=== PATIENT | male | born 1985 | race Caucasian/White ===

== ENCOUNTER 2016-07-11 10:24 | Emergency (ER) | payer MEDICAID ==
[~2016-07-11] VITALS: Ht 165.1 cm; Wt 74.8 kg
[2016-07-11 10:39] VITALS: BP 117/77
--- NOTE | 2016-07-11 10:40 | NUR ---
Patient ambulated to bed 07.
--- NOTE | 2016-07-11 10:45 | NUR ---
PATIENT PRESENTS TO ED WITH C/O LEFT SIDED HEADACHE SINCE THIS AM, STATES HE HAD 6 BEERS LAST NIGHT;DENIES N/V/D THIS MORNING, VOMITED LAST NIGHT; SKIN IS PINK/WARM/DRY; AAOX4 WITH EVEN AND STEADY GAIT; LUNGS CLEAR BL; HR EVEN AND REGULAR; PT DENIES ANY FEVER, CP, SOB, OR COUGH AT THIS TIME; PATIENT STATES PAIN OF 8/10 AT THIS TIME; VSS; PATIENT POSITIONED FOR COMFORT; HOB ELEVATED; BEDRAILS UP X2; BED DOWN. ER MD MADE AWARE OF PT STATUS.
--- NOTE | 2016-07-11 10:53 | NUR ---
Dr. He evaluating patient at bedside.
[2016-07-11] MEDS ORDERED: LORazepam 2 MG/ML VIAL IVP ONE (11:15)
[2016-07-11] MEDS ORDERED: LORazepam 1 MG TAB PO ONE (11:20)
[2016-07-11 12:58] VITALS: BP 128/88
--- NOTE | 2016-07-11 12:58 | NUR ---
Patient discharged with v/s stable. Written and verbal after care instructions given and explained. Patient verbalized understanding. Ambulatory with steady gait. All questions addressed prior to discharge. Advised to follow up with PMD.
== END 2016-07-11 12:58 | disposition home or self-care (01) ==
LOC: MED 10:27
DX: F41.9 Anxiety disorder, unspecified (principal)

== ENCOUNTER 2018-01-09 12:04 | Emergency (ER) | payer SELFPAY ==
[~2018-01-09] VITALS: Ht 165.1 cm; Wt 78.0 kg
[2018-01-09 12:10] VITALS: BP 125/73
--- NOTE | 2018-01-09 12:16 | NUR ---
Patient ambulated to bed 12. RN evaluating patient at bedside.
--- NOTE | 2018-01-09 12:27 | NUR ---
PATIENT PRESENTS TO ED WITH LEFT EAR PAIN . PT STATES . DENIES N/V/D; SKIN IS PINK/WARM/DRY; AAOX4 WITH EVEN AND STEADY GAIT; LUNGS CLEAR BL; HR EVEN AND REGULAR; PT DENIES ANY FEVER, CP, SOB, OR COUGH AT THIS TIME; PATIENT STATES PAIN OF 8/10 AT THIS TIME; VSS; PATIENT POSITIONED FOR COMFORT; HOB ELEVATED; BEDRAILS UP X2; BED DOWN. ER MD MADE AWARE OF PT STATUS.
[2018-01-09 13:00] VITALS: BP 125/73
--- NOTE | 2018-01-09 13:01 | NUR ---
Patient discharged with v/s stable. Written and verbal after care instructions given and explained. Patient alert, oriented and verbalized understanding of instructions. Ambulatory with steady gait. All questions addressed prior to discharge. ID band removed. Patient advised to follow up with PMD. Rx of CORTISPORIN OTIC given. Patient educated on indication of medication including possible reaction and side effects. Opportunity to ask questions provided and answered.
== END 2018-01-09 13:00 | disposition home or self-care (01) ==
LOC: MED 12:04
DX: H61.22 Impacted cerumen, left ear (principal); H60.92 Unspecified otitis externa, left ear; I10 Essential (primary) hypertension
CPT/HCPCS: 99282

== ENCOUNTER 2018-11-26 15:00 | Emergency (ER) | payer SELFPAY ==
[~2018-11-26] VITALS: Ht 167.6 cm; Wt 71.2 kg
[2018-11-26 15:06] VITALS: BP 113/87
--- NOTE | 2018-11-26 15:14 | NUR ---
[facility]
--- NOTE | 2018-11-26 15:52 | NUR ---
PT AMBULATED TO ROOM 12
[2018-11-26] MEDS ORDERED: cefTRIAXone 1,000 MG in LIDOCAINE 1% ***ER ONLY *** 2.1 ML IM ONE (16:50)
[2018-11-26] MEDS ORDERED: HYDROcodone/APAP 5/325 MG 1 TAB TAB PO ONE (16:50)
--- NOTE | 2018-11-26 16:55 | NUR ---
BIB SELF. AAO X4 C/O LEFT 2ND DIGIT LACERATION. PER PT, WAS FIXING THE PANEL OF THE CAR AND WAS CUT BY THE METAL. PER PT, THE METAL CUT THROUGH HIS GLOVES. BLEEDING CONTROLLED.
[2018-11-26] MEDS ORDERED: cefTRIAXone 1,000 MG VIAL ONE (17:09)
[2018-11-26] MEDS ORDERED: LIDOCAINE MPF 1% - 5 mL VIAL 5 ML ONE (17:11)
[2018-11-26 17:40] VITALS: BP 125/79
--- NOTE | 2018-11-26 17:53 | NUR ---
NO WOUND DRESSING WAS NEEDED FOR THE FINGER LACERATION. PHYSICIAN KAMILLA KHOURY AND FE STRIPPED THE FINGER.
== END 2018-11-26 17:40 | disposition home or self-care (01) ==
LOC: MED 15:00
DX: S61.211A Laceration without foreign body of left index finger without damage to nail, initial encounter (principal); I10 Essential (primary) hypertension; F41.9 Anxiety disorder, unspecified; W45.8XXA Other foreign body or object entering through skin, initial encounter; Y93.89 Activity, other specified; Y92.89 Other specified places as the place of occurrence of the external cause; Y99.8 Other external cause status
CPT/HCPCS: 12001; 90471; 90715; 96372; 99283; J0696; J2001

== ENCOUNTER 2021-02-09 09:40 | Emergency (ER) | payer SELFPAY ==
[~2021-02-09] VITALS: Ht 167.6 cm; Wt 70.3 kg
[2021-02-09 10:07] VITALS: BP 152/87
--- NOTE | 2021-02-09 10:11 | NUR ---
Patient to wait in tent. HR 91 SpO2 100% Temperature 98.6* (temporal).
--- NOTE | 2021-02-09 10:12 | NUR ---
35 y/o M BIB self from home c/o COVID-19 symptoms: nausea, headache, chills, "wet cough," sore throat +itchiness -SOB. Patient reports waking up at 0600 this morning with symptoms, denies vomiting, chest/ abdominal pain, dysuria, urinary symptoms. Denies medications prior to arrival. Denies sickness at home. Temperature 98.6* temporal. PMH/Sx/Meds: hyperlipidemia (dietary controlled), anxiety NKA
[2021-02-09] MEDS ORDERED: PROM118S5 PO (11:03)
[2021-02-09] MEDS ORDERED: ACET-10509 PO (11:03)
--- NOTE | 2021-02-09 11:27 | NUR ---
COVID Swab collected and sent to lab
[2021-02-09 11:28] VITALS: BP 152/87
--- NOTE | 2021-02-09 11:28 | NUR ---
Patient discharged with v/s stable. Written and verbal after care instructions given and explained. Patient alert, oriented and verbalized understanding of instructions. Ambulatory with steady gait. All questions addressed prior to discharge. ID band removed. Patient advised to follow up with PMD. Rx of Acetaminophen and promethaizne was given. Patient educated on indication of medication including possible reaction and side effects. Opportunity to ask questions provided and answered.
== END 2021-02-09 11:28 | disposition home or self-care (01) ==
LOC: MED 09:40
DX: J06.9 Acute upper respiratory infection, unspecified (principal); Z20.822 Contact with and (suspected) exposure to COVID-19; I10 Essential (primary) hypertension; Z79.899 Other long term (current) drug therapy
CPT/HCPCS: 99283; U0003

== ENCOUNTER 2022-02-19 11:34 | Emergency (ER) | payer SELFPAY ==
[~2022-02-19] VITALS: Ht 162.6 cm; Wt 74.8 kg
[~2022-02-19 11:34] MED LIST: ACET-10509 PO; PROM118S5 PO
[2022-02-19 11:43] VITALS: BP 131/97
--- NOTE | 2022-02-19 11:59 | NUR ---
DR JARA AT BEDSIDE.
--- NOTE | 2022-02-19 12:03 | NUR ---
36 Y/O M BIB SELF C/O ABD AND HEADACHE ON AND OFF FOR 3 WEEKS. PT HAS BEEN TAKING TYLENOL WITH NO RELIEF. NKA OR PMH
[2022-02-19] MEDS ORDERED: KETOROLAC 15 MG/ML VIAL IVP ONE (12:05)
[2022-02-19] MEDS ORDERED: ONDANSETRON 4 MG ODT PO ONE (12:05)
--- NOTE | 2022-02-19 12:20 | NUR ---
LAB AT BEDSIDE.
[2022-02-19 12:44] LABS: BASOPHILS % (AUTO) 1.1 % (0.0-2.0); EOSINOPHILS # (AUTO) 0.1 K/uL (0-0.4); EOSINOPHILS % (AUTO) 1.5 % (0.0-4.0); HEMATOCRIT 49.5 % (36-52); LYMPHOCYTES # (AUTO) 0.9 K/uL (2.0-11.5); LYMPHOCYTES % (AUTO) 18.8 % (20.5-51.1); MEAN CORPUSCULAR HEMOGLOBIN 32 pg (27-31); MEAN CORPUSCULAR HGB CONC 34 g/dL (33-37); MONOCYTES # (AUTO) 0.5 K/uL (0.8-1.0); MONOCYTES % (AUTO) 11.1 % (1.7-9.3); NEUTROPHILS # (AUTO) 3.1 K/uL (1.8-7.7); NEUTROPHILS % (AUTO) 67.5 % (42.2-75.2); PLATELET COUNT (AUTO) 220 K/uL (140-450); RED BLOOD CELL COUNT(AUTO) 5.38 MIL/uL (4.20-6.10); RED CELL DISTRIBUTION WIDTH 12.7 % (11.6-13.7); WHITE BLOOD COUNT (AUTO) 4.5 K/uL (4.8-10.8)
[2022-02-19 13:14] LABS: ALBUMIN 3.7 g/dL (3.4-5.0); ANION GAP 13.3 (8-16); CARBON DIOXIDE 27.6 mmol/L (21-32); CREATININE 0.8 mg/dL (0.6-1.3); POTASSIUM 3.9 mmol/L (3.5-5.1); TOTAL BILIRUBIN 0.7 mg/dL (0.0-1.0)
--- NOTE | 2022-02-19 13:38 | NUR ---
Patient taken for CT scan via wheelchair
--- NOTE | 2022-02-19 13:59 | NUR ---
PT BACK FROM CT SCAN.
[2022-02-19] MEDS ORDERED: BEN10 PO (14:47)
[2022-02-19 14:55] VITALS: BP 124/80
--- NOTE | 2022-02-19 14:56 | NUR ---
Patient discharged with v/s stable. Written and verbal after care instructions given and explained. Patient alert, oriented and verbalized understanding of instructions. Ambulatory with steady gait. All questions addressed prior to discharge. ID band removed. Patient advised to follow up with PMD. Rx of DICLOMINE HYDROCHLORIDE given. Opportunity to ask questions provided and answered.
--- NOTE | 2022-02-19 15:00 | NUR ---
Chart checked and completed. The patient's care was reviewed and supervised by Malina Mancia RN.
== END 2022-02-19 14:56 | disposition home or self-care (01) ==
LOC: MED 11:34
DX: R10.31 Right lower quadrant pain (principal); I10 Essential (primary) hypertension; Z79.899 Other long term (current) drug therapy
CPT/HCPCS: 36415; 74177; 80053; 81002; 83690; 85025; 96372; 99285; J1885; Q0162; Q9967

== ENCOUNTER 2022-08-09 13:58 | Emergency (ER) | payer SELFPAY ==
[~2022-08-09] VITALS: Ht 167.6 cm; Wt 77.1 kg
[~2022-08-09 13:58] MED LIST changes: +BEN10 PO
[2022-08-09 14:11] VITALS: BP 130/96
[2022-08-09 15:38] LABS: BASOPHILS # (AUTO) 0.1 K/uL (0.00-0.22); BASOPHILS % (AUTO) 1.3 % (0.0-2.0); EOSINOPHILS # (AUTO) 0.1 K/uL (0-0.4); EOSINOPHILS % (AUTO) 1.8 % (0.0-4.0); HEMATOCRIT 51.3 % (36-52); LYMPHOCYTES # (AUTO) 1.3 K/uL (2.0-11.5); LYMPHOCYTES % (AUTO) 22.6 % (20.5-51.1); MEAN CORPUSCULAR HEMOGLOBIN 32 pg (27-31); MEAN CORPUSCULAR HGB CONC 35 g/dL (33-37); MONOCYTES # (AUTO) 0.7 K/uL (0.8-1.0); NEUTROPHILS # (AUTO) 3.7 K/uL (1.8-7.7); NEUTROPHILS % (AUTO) 62.3 % (42.2-75.2); PLATELET COUNT (AUTO) 257 K/uL (140-450); RED BLOOD CELL COUNT(AUTO) 5.63 MIL/uL (4.20-6.10); RED CELL DISTRIBUTION WIDTH 13.2 % (11.6-13.7); WHITE BLOOD COUNT (AUTO) 5.9 K/uL (4.8-10.8)
[2022-08-09 16:03] LABS: ALBUMIN 4.5 g/dL (3.4-5.0); ANION GAP 10.2 (8-16); CARBON DIOXIDE 32.7 mmol/L (21-32); CREATININE 0.9 mg/dL (0.6-1.3); POTASSIUM 3.9 mmol/L (3.5-5.1); TOTAL BILIRUBIN 0.6 mg/dL (0.0-1.0)
[2022-08-09] MEDS ORDERED: IBUP-2213 PO (16:53)
[2022-08-09] MEDS ORDERED: KETOROLAC 30 MG/ML VIAL IVP ONE (21:05)
--- NOTE | 2022-08-09 21:05 | NUR ---
21:05 PATIENT HAS BEEN WAITING IN LOBBY FOR 4HRS. DR.SHARRON SOMERS WANTS PATIENT TO BE SEEN RANDA. NO ONE HAS NOTIFIED PATIENT OR CHARGE NURSE. REGARDING PATIENT TO HAVE IV CONTRAST DONE.
[2022-08-09] MEDS ORDERED: ONDANSETRON 4 MG/2 ML VIAL IVP ONE (22:25)
[2022-08-09] MEDS ORDERED: MORPHINE SULFATE 4 MG/ML SYR IVP ONE (22:25)
[2022-08-09] MEDS ORDERED: KETOROLAC 30 MG/ML VIAL ONE (22:33)
== END 2022-08-09 23:10 | disposition home or self-care (01) ==
LOC: MED 13:58
DX: K40.90 Unilateral inguinal hernia, without obstruction or gangrene, not specified as recurrent (principal); I10 Essential (primary) hypertension; Z79.899 Other long term (current) drug therapy; Z79.1 Long term (current) use of non-steroidal anti-inflammatories (NSAID)
CPT/HCPCS: 36415; 74177; 80053; 83615; 85025; 96374; 96375; 99285; J1885; J2270; J2405; Q9967

== ENCOUNTER 2023-11-06 21:08 | Emergency (ER) | payer SELFPAY ==
[~2023-11-06] VITALS: Ht 167.6 cm; Wt 73.9 kg
[~2023-11-06 21:08] MED LIST changes: +IBUP-2213 PO
[2023-11-06 21:18] VITALS: BP 109/90; PULSE 94; RESP 18; TEMP 98.2; O2SAT 99
[2023-11-06 21:31] VITALS: BP 109/90; PULSE 94; RESP 18; TEMP 98.2; O2SAT 99
[2023-11-06 21:40] LABS: BASOPHILS % (AUTO) 0.5 % (0.0-2.0); EOSINOPHILS # (AUTO) 0.2 K/uL (0-0.4); EOSINOPHILS % (AUTO) 2.9 % (0.0-4.0); HEMATOCRIT 49.7 % (36-52); HEMOGLOBIN 17.1 g/dL (12.0-18.0); LYMPHOCYTES # (AUTO) 1.8 K/uL (2.0-11.5); LYMPHOCYTES % (AUTO) 29.4 % (20.5-51.1); MEAN CORPUSCULAR HEMOGLOBIN 32 pg (27-31); MEAN CORPUSCULAR HGB CONC 35 g/dL (33-37); MEAN CORPUSCULAR VOLUME 93.3 fL (80-94); MONOCYTES # (AUTO) 0.6 K/uL (0.8-1.0); MONOCYTES % (AUTO) 10.3 % (1.7-9.3); NEUTROPHILS # (AUTO) 3.4 K/uL (1.8-7.7); NEUTROPHILS % (AUTO) 56.9 % (42.2-75.2); PLATELET COUNT (AUTO) 236 K/uL (140-450); RED BLOOD CELL COUNT(AUTO) 5.32 MIL/uL (4.20-6.10); RED CELL DISTRIBUTION WIDTH 13.4 % (11.6-13.7)
[2023-11-06 21:48] LABS: CALCIUM 8.6 mg/dL (8.5-10.1); CARBON DIOXIDE 22.7 mmol/L (21-32); CREATININE 0.7 mg/dL (0.6-1.3); POTASSIUM 3.7 mmol/L (3.5-5.1)
[2023-11-06] MEDS: KETOROLAC 30 MG/ML VIAL IVP ONE (21:48)
[2023-11-06 21:53] LABS: BILIRUBIN,DIRECT 0.2 mg/dL (0.0-0.3); TOTAL BILIRUBIN 0.7 mg/dL (0.0-1.0); TOTAL PROTEIN, SERUM 7.8 g/dL (6.4-8.2)
[2023-11-06] MEDS ORDERED: NAPR-337 PO (23:29)
== END 2023-11-06 23:35 | disposition home or self-care (01) ==
LOC: MED 21:08
DX: K40.90 Unilateral inguinal hernia, without obstruction or gangrene, not specified as recurrent (principal); I10 Essential (primary) hypertension; Z79.899 Other long term (current) drug therapy
CPT/HCPCS: 36415; 74176; 80048; 80076; 83690; 85025; 96374; 99285; J1885